=== PATIENT | female | born 1990 ===

== ENCOUNTER 2025-03-25 08:04 | Inpatient (IN) | payer OTHER ==
[~2025-03-25] VITALS: Ht 160 cm; Wt 69.8 kg
[2025-03-25 12:34] VITALS: BP 128/86
[2025-03-25] MEDS ORDERED: DULO60 PO (13:00)
[2025-03-25] MEDS ORDERED: LAMO100 PO (13:01)
[2025-03-25] MEDS ORDERED: MELO7.5 PO (13:02)
[2025-03-25] MEDS ORDERED: RIZATRIPTAN10 MG SL (13:05)
[2025-03-25] MEDS ORDERED: ZANAFLEX413 PO (13:07)
[2025-03-25] MEDS ORDERED: Aluminum Hydroxide 320MG/5ML 473 ML PO PRN (13:20)
[2025-03-25] MEDS ORDERED: Ondansetron 4 MG SoluTab MM PRN (13:20)
[2025-03-25] MEDS ORDERED: Polyethylene Glycol 3350 17 gm PO PRN (13:20)
[2025-03-25] MEDS ORDERED: Haloperidol Lactate Inj. 5 MG/ML Injection IM PRN (13:25)
[2025-03-25] MEDS ORDERED: DiphenhydrAMINE HCl 50 MG/ML 1ML Vial IM PRN (13:25)
[2025-03-25] MEDS ORDERED: LORazepam 2 MG/ML 1ML Injection IM PRN (13:30)
[2025-03-25 13:32] VITALS: BP 128/86
[2025-03-25] MEDS ORDERED: Rizatriptan Benzoate 10 MG / TAB SoluTab SL PRN (14:00)
--- NOTE | 2025-03-25 15:17 | NUR ---
ADMISSION ASSESSMENT: PT WAS ADMITTED TO [facility] FROM [facility] BY SECURE TRANSPORT AT 1226. PT WAS ALERT, ORIENTED AND ABLE TO ANSWER ALL QUESTIONS. PT TOOK A TIZANIDINE 2MG "AN ENTIRE BOTTLE AND 10 THC GUMMIES AND A CUPFUL OF VODKA." HER FOUND HER AND SHE WAS TRANSPORTED TO THE HOSPITAL. SHE ENDORSED THAT SHE WANTED TO GO TO SLEEP AND NOT WAKE UP. SHE DENIED HI AND AVH. SHE WAS GIVEN A TOUR OF THE UNIT AND IS PRESENTLY IN THE TV ROOM WATCHING A MOVIE WITH PEERS.
--- NOTE | 2025-03-25 18:19 | NUR ---
PT HAD A VISIT WITH HER AND HAS MADE SEVERAL PHONE CALLS. SHE HAS BEEN PLEASANT AND COOPERATIVE WITH CARE.
[2025-03-25 19:13] VITALS: BP 124/97
--- NOTE | 2025-03-26 06:06 | NUR ---
SHIFT SUMMARY Pt is A&O, calm, cooperative, eye contact is appropriate. Pt describes his mood as a little anxious, affect is open and full. Pt denies SI, HI, and hallucinations. Pt has been diagnosed with fibromyalgia and is worried about not getting her normal medication regimen. She endorsed current all-over pain 9/10w and said that her normal baseline pain level is about a 6. Pt requested PRN APAP and ibuprofen, which she received at 1930. Pt was active on the milieu during the evening, watching TV and pleasantly interacting with staff and peers. PRN trazodone, and melatonin during HS med pass. Staff continues q15m safety checks per unit protocol.
[2025-03-26 08:22] LABS: CHOL/HDL RATIO 4.2; Cholesterol 277 mg/dL (50-200); HDL Cholesterol 66 mg/dL (>39); LDL/HDL RATIO 3.0; Low Density Lipoprotein Chol 196 mg/dL (0-110); Triglycerides 74 mg/dL (30-140); Very Low Density Lipoprot Chol 14 mg/dL (6-28)
[2025-03-26 08:58] VITALS: BP 116/75
[2025-03-26] MEDS ORDERED: Multivitamins 1 Tab PO SCH (09:00)
[2025-03-26] MEDS ORDERED: DULoxetine HCL 30 MG Cap DR PO SCH (09:00)
[2025-03-26] MEDS ORDERED: Cymbalta20 MG PO (11:55)
[2025-03-26] MEDS ORDERED: TIZA4 PO (11:57)
[2025-03-26] MEDS ORDERED: CYCL10 PO (11:58)
--- NOTE | 2025-03-26 17:18 | NUR ---
SHIFT SUMMARY PT A/O X4; PLEASANT AND COOPERATIVE WITH CARE. PT DENIES SI, HI, AVTH. SHE DESCRIBES HER MOOD "NUMB" AND HER AFFECT IS SOMEWHAT CONSTRICTED. PT PARTICIPATES IN ALL GROUPS AND MEALS. SHE IS ACTIVE ON THE MILEU AND INTERACTS WITH PEERS OFTEN. UPDATED MEDICATION LIST OBTAINED FROM AND MEDICATION RECONCILATION COMPLETED. PT STATES THAT SHE LIKES TO TAKE ALL OF HER MEDICATIONS AT NIGHT BECAUSE MOST OF THEM MAKE HER SLEEPY. SHE CONTINUES TO BE ROUNDED ON Q15 FOR SAFETY AND WELLNESS.
[2025-03-26 19:57] VITALS: BP 126/92
--- NOTE | 2025-03-27 06:14 | NUR ---
SHIFT SUMARY Pt is A&O, calm, cooperative, eye contact is appropriate. Pt describes his mood as a little anxious, affect is constricted. Pt denies SI, HI, and hallucinations. Pt endorsed all-over pain 9/10w RT fibromyalgia. Pt was active on the milieu during the evening, watching TV and pleasantly interacting with staff and peers. PRN trazodone and tizanidine were given during [facility] med pass. Staff continues q15m safety checks per unit protocol.
[2025-03-27 08:58] VITALS: BP 108/72
--- NOTE | 2025-03-27 16:43 | NUR ---
SHIFT SUMMARY PT A/O X4; DENIES SI, HI, AVTH. PT REPORTS HER MOOD TO BE "OK" AND HER AFFECT IS SOMEWHAT CONSTRICTED. PT INTERACTS WELL WITH HER PEERS AND CONTINUES TO BE ACTIVE ON THE MILEU. HER VISITED THIS SHIFT AND THE VISIT SEEMED TO GO WELL. SHE CONTINUES TO BE MONITORED VIA Q15 ROUNDING FOR SAFETY AND COMFORT.
[2025-03-27 19:11] VITALS: BP 114/87
--- NOTE | 2025-03-28 05:53 | NUR ---
SHIFT SUMMARY Pt is A&O, calm, cooperative, eye contact is appropriate. Pt describes his mood as numb, depressed affect is constricted. Pt denies SI, HI, and hallucinations. Pt endorsed all-over pain 9/10w RT fibromyalgia. Pt was active on the milieu during the evening, watching TV and pleasantly interacting with staff and peers. PRN trazodone, melatonin, and tizanidine were given during HS med pass. Staff continues q15m safety checks per unit protocol.
[2025-03-28 08:56] VITALS: BP 103/78
--- NOTE | 2025-03-28 09:46 | NUR ---
PT ALERT, ORIENTED AND COOPERATIVE WITH CARE. PT STATES THAT SHE IS READY TO GO HOME. I ENCOURAGED HER TO SPEAK WITH THE PROVIDER ABOUT THIS WHEN SHE TALKS WITH HIM TODAY. SHE DENIES SI, HI AND AVH. STATES THAT SHE SLEPT GOOD LAST NIGHT AND IS FEELING GOOD TODAY.
--- NOTE | 2025-03-28 17:15 | NUR ---
SHIFT SUMMARY: NO ACUTE CHANGES NOTED THIS SHIFT. PT PRESENT ON THE UNIT AND ACTIVE IN THE MILIEU. SPENT TIME IN THE DAY ROOM, WATCHING TV, TALKING WITH PEERS AND STAFF. SHE ATTENDED GROUPS AND MEALS.
[2025-03-28 20:05] VITALS: BP 92/71
--- NOTE | 2025-03-29 06:08 | NUR ---
SHIFT SUMMARY Pt is A&O, calm, cooperative, eye contact is good. Pt s mood is good, affect is euthymic. Pt denies SI, HI, and hallucinations. Pt denied current pain. Pt stated that she realized that her comments to her sister were inappropriate and are the reason she has been admitted. Pt was active on the milieu during the evening, watching TV and pleasantly interacting with staff and peers. Staff continues q15m safety check per unit protocol.
--- NOTE | 2025-03-29 06:10 | NUR ---
SHIFT SUMMARY Pt is A&O, calm, cooperative, eye contact is appropriate. Pt describes his mood as good, affect is euthymic. Pt denies SI, HI, and hallucinations. Pt denied current pain.Pt was active on the milieu during the evening, watching TV and pleasantly interacting with staff and peers. PRN trazodone, melatonin, and tizanidine were given during HS med pass. Staff continues q15m safety checks per unit protocol.
[2025-03-29 08:26] VITALS: BP 113/81
[2025-03-29 09:48] LABS: Lithium 0.44 mmol/L (0.60-1.20)
[2025-03-29 09:52] LABS: Alanine Aminotransfer (ALT/SGP 24.0 U/L (12-78); Albumin, Blood 3.8 g/dL (3.4-5.0); Albumin/Globulin Ratio 0.9 (0.8-1.8); Anion Gap 7.0 mmol/L (3-11); Aspartate Aminotrans (AST/SGOT 20.0 U/L (12-37); Bilirubin, Total 0.5 mg/dL (0.1-1.0); Blood Urea Nitrogen 17.0 mg/dL (8-24); CO2, Blood 28.0 mmol/L (21-32); Calcium, Blood 9.5 mg/dL (8.5-10.1); Chloride, Blood 105.0 mmol/L (98-108); Creatinine, Blood 1.08 mg/dL (0.40-1.00); Globulin, Blood 4.1 g/dL (2.2-4.0); Glucose, Blood 102.0 mg/dL (70-99); Potassium, Blood 4.0 mmol/L (3.5-5.5); Sodium, Blood 136.0 mmol/L (136-145); Thyroid Stimulating Hormone 1.19 uIU/mL (0.360-4.800); Total Protein, Blood 7.9 g/dL (6.4-8.2)
--- NOTE | 2025-03-29 17:30 | NUR ---
SHIFT SUMMARY PT IS AA&O TO PERSON, PLACE, SITUATION, AND TIME. SHE IS PLEASANT AND COOPERATIVE WITH CARE. SHE IS COMPLIANT WITH MEDICATIONS AND DENIES ANY ADVERSE SIDE EFFECTS. SPEECH AND EYE CONTACT IS APPROPRIATE. REPORTS MOOD GOOD AFFECT IS EUTHYMIC. SHE DENIES SI, AVH. SHE HAS BEEN ACTIVE IN THE MILIEU AND UP FOR SHOWER, GROUPS AND MEALS. SHE DENIES ANY QUESTIONS OR CONCERNS AT THIS TIME. WILL CONTINUE PLAN OF CARE
[2025-03-29 19:20] VITALS: BP 129/82
[2025-03-29] MEDS ORDERED: Lidocaine 4% 1 Patch TOP SCH (21:00)
--- NOTE | 2025-03-30 04:24 | NUR ---
SHIFT SUMMARY: PATIENT WAS IN THE DINING ROOM FINISHING DINNER AT THE BEGINNING OF THE SHIFT. SHE CAME OUT INTO THE MILIEU AND ASKED FOR CANDY, AND THEN WENT INTO THE DAY ROOM. CANDY WAS NOT GIVEN DUE TO UNIT PROTOCOL, BUT PT WAS TOLD THAT SNACK WOULD BE AT 2030. PATIENT STATED THAT SHE'D HAD "A GOOD DAY. i'M LOOKING FORWARD TO DISCHARGE". SHE STATED, "i FELT SO COMFORTABLE HERE. I'VE BEEN TO A LOT OF DIFFERENT FACILITIES AND THIS IS THE BEST ONE. EVERYONE IS SO KIND." SHE STATED THAT SHE WAS "LOOKING FORWARD TO BEING WITH MY AND KIDS". SHE PARTICIPATED IN SNACK TIME AT 2030, AND WAS COMPLIANT WITH EVENING MEDICATIONS, INCLUDING LIDOCAINE PATCHES FOR UPPER AND LOWER BACK PAIN. SHE ALSO HAD IBUPROFEN AND APAP FOR THE PAIN 01/06, TO HELP HER SLEEP. PATIENT DENIED SUICIDAL IDEATION, THOUGHTS OF SELF HARMING AND A/V HALLUCINATIONS. SHE STAYED UP FOR A SHORT WHILE AFTER SNACK, AND THEN WENT TO BED, WHERE SHE WAS NOTED TO BE RESTING QUIETLY WITH EYES CLOSED AND RESPIRATIONS CONFIRMED FOR THE REMAINDER OF THE SHIFT. CONTINUING TO MONITOR FOR SAFETY WITH Q15 MINUTE CHECKS.
[2025-03-30 07:18] VITALS: BP 97/83
--- NOTE | 2025-03-30 08:06 | NUR ---
IMPORTANT DISCHARGE NOTES FYI: PATIENT ALSO GOES BY THE LAST NAME OF GENAROBRAIN PATIENT DISCHARGING TODAY. HER SO WILL BE PICKING HER UP BETWEEN 12:30 AND 1PM. ALL PARTIES VERBALIZE AN UNDERSTANDING. FOLLOW UP APPOINTMENT WITH: MELY GRESHAM ON 9:45AM AT THE [facility]. HER PCP COULD NOT FIT HER IN TIMELY FOR A MATTHEW APPOINTMENT. PCP IS DR. KUMAR OLIVEROS. REFERRAL PLACED FOR MENTAL HEALTH SUPPORT. PHARMACY: [facility] [phone]
[2025-03-30 08:25] LABS: Alanine Aminotransfer (ALT/SGP 24.0 U/L (12-78); Albumin, Blood 3.7 g/dL (3.4-5.0); Albumin/Globulin Ratio 0.9 (0.8-1.8); Anion Gap 7.0 mmol/L (3-11); Aspartate Aminotrans (AST/SGOT 14.0 U/L (12-37); Bilirubin, Total 0.3 mg/dL (0.1-1.0); Blood Urea Nitrogen 17.0 mg/dL (8-24); CO2, Blood 25.0 mmol/L (21-32); Calcium, Blood 8.9 mg/dL (8.5-10.1); Chloride, Blood 109.0 mmol/L (98-108); Creatinine, Blood 1.01 mg/dL (0.40-1.00); Globulin, Blood 4.0 g/dL (2.2-4.0); Glucose, Blood 96.0 mg/dL (70-99); Potassium, Blood 4.1 mmol/L (3.5-5.5); Sodium, Blood 137.0 mmol/L (136-145); Total Protein, Blood 7.7 g/dL (6.4-8.2)
[2025-03-30] MEDS ORDERED: DULO30 PO (08:28)
[2025-03-30] MEDS ORDERED: Lithium Carbon450 MG PO (11:30)
[2025-03-30] MEDS ORDERED: MELA3 PO (11:32)
[2025-03-30] MEDS ORDERED: TRAZ50 PO (11:33)
--- NOTE | 2025-03-30 14:11 | NUR ---
NURSING DISCHARGE NOTE PT IS AA&O TO PERSON, PLACE, SITUATION AND TIME. SHE IS PLEASANT AND COOPERATIVE WITH CARE. SHE IS COMPLIANT WITH MEDICATIONS AND DENIES ANY SIDE EFFECTS. SPEECH AND MOOD IS APPROPRIATE. SHE REPORTS THAT SHE FEELS HAPPY AND SHE IS READY FOR HOME. SHE DENIES SI, AVH. SAFETY PLAN COMPLETED. DISCHARGE APPOINTMENTS, MEDICATIONS, AND MENTAL HEALTH DX REVIEWED. PT VERBALIZED UNDERSTANDING AND DENIED ANY QUESTIONS. PT BELONGINGS RETURNED AND PT DISCHARGED TO HOME @4653. DROP HOLD PAPERWORK FAXED TO [facility], [facility]
== END 2025-03-30 12:35 | disposition home or self-care (01) | DRG 885 ==
LOC: BHU 08:04
PROVIDERS: ADMIT Student in an Organized Health Care Education/Training Program
DX: F31.81 Bipolar II disorder (principal); R45.851 Suicidal ideations; M79.7 Fibromyalgia; F12.90 Cannabis use, unspecified, uncomplicated; Z79.899 Other long term (current) drug therapy; Z79.1 Long term (current) use of non-steroidal anti-inflammatories (NSAID)
CPT/HCPCS: 36415; 80053; 80061; 80178; 83036; 84443; A9270